=== PATIENT | female | born 1945 | race Caucasian/White ===

== ENCOUNTER 2022-07-05 11:00 | Emergency (ER) | payer OTHER ==
[~2022-07-05] VITALS: Ht 160 cm; Wt 65.8 kg
[2022-07-05 11:11] VITALS: BP_SYST 191
--- NOTE | 2022-07-05 11:11 | NUR ---
Patient to ER bed 03 to gown for evaluation. Side rails up. Report given to Rosemarie SIN.
--- NOTE | 2022-07-05 11:21 | NUR ---
PT BIB DAUGHTER FROM HOME C/O LT FLANK PAIN 06/15. PT DENIES N/V/D. PT IS AFIBRILE. PT STATES BED SORE ON COCCYX. PT DENIES PAIN IN DURING URINATION. PT AAO X4. PT STATES HX OF HTN AND DM. PT RESTING IN BED WITH THE RAILS UP VSS
--- NOTE | 2022-07-05 11:27 | NUR ---
ER at bedside examining patient.
[2022-07-05] MEDS ORDERED: NACL 0.9% 1,000 ML IV ONE (11:30)
[2022-07-05] MEDS ORDERED: ENALAPRILAT DIHYDRATE 1.25 MG/ML VIAL IVP ONE (11:30)
--- NOTE | 2022-07-05 12:00 | NUR ---
1L NS BOLUS NOT GIVEN DUE TO BLOOD PRESSURE 208/[address] STOREY UNTIL FURTHER NOTICE
[2022-07-05 12:20] LABS: BASOPHILS # (AUTO) 0.1 K/uL (0.0-0.2); BASOPHILS % (AUTO) 1.1 % (0.0-2.0); EOSINOPHILS # (AUTO) 0.1 K/uL (0.0-0.4); EOSINOPHILS % (AUTO) 1.4 % (0.0-4.0); HEMATOCRIT 47.2 % (36-48); HEMOGLOBIN 15.8 g/dL (12.0-16.0); LYMPHOCYTES # (AUTO) 1.2 K/uL (1.0-5.5); LYMPHOCYTES % (AUTO) 18.8 % (20.5-51.5); MEAN CORPUSCULAR HEMOGLOBIN 30 pg (27-31); MEAN CORPUSCULAR HGB CONC 33 % (32-36); MEAN CORPUSCULAR VOLUME 91 fL (79.0-98.0); MONOCYTES # (AUTO) 0.6 K/uL (0.0-1.0); NEUTROPHILS # (AUTO) 4.3 K/uL (1.8-7.7); NEUTROPHILS % (AUTO) 68.7 % (40.0-70.0); PLATELET COUNT (AUTO) 225 K/uL (130-430); RED BLOOD CELL COUNT(AUTO) 5.21 MIL/uL (4.2-6.2); WHITE BLOOD COUNT (AUTO) 6.2 K/uL (4.8-10.8)
[2022-07-05 12:30] LABS: ANION GAP 5 (5-15); CALCIUM 9.8 mg/dL (8.4-11.0); CHLORIDE 100 mmol/L (98-107); CREATININE 0.96 mg/dL (0.55-1.30); GLUCOSE 236 mg/dL (70-99); UREA NITROGEN, BLOOD 23 mg/dL (8-21)
[2022-07-05 12:35] LABS: ALANINE AMINOTRANSFERASE 19 U/L (12-78); ALBUMIN 3.7 g/dL (3.4-4.8); ASPARTATE AMINOTRANSFERASE 21 U/L (10-37); TOTAL BILIRUBIN 0.5 mg/dL (0.0-1.0)
[2022-07-05] MEDS ORDERED: hydrALAZINE HCL 20 MG/ML VIAL IVP ONE (12:45)
[2022-07-05 12:49] LABS: BILIRUBIN,URINE NEGATIVE (NEGATIVE); BLOOD, URINE 3+ (NEGATIVE); CLARITY/URINE SLIGHTLY HAZY (CLEAR); COLOR,URINE YELLOW (YELLOW); GLUCOSE,URINE NEGATIVE (NEGATIVE); KETONES,URINE NEGATIVE (NEGATIVE); LEUKOCYTE ESTERASE ,URINE 2+ (NEGATIVE); NITRITE, URINE NEGATIVE (NEGATIVE); PROTEIN URINE 2+ (NEGATIVE)
[2022-07-05 12:58] LABS: BACTERIA,URINE FEW /HPF (None Seen); RBC,URINE 20-50 /HPF (0-3)
[2022-07-05] MEDS ORDERED: cefTRIAXone 1 GM IVPB PREMIX 50 ML IV ONE (13:30)
[2022-07-05] MEDS ORDERED: CIPR500T5 PO (14:33)
[2022-07-05] MEDS ORDERED: NAPR-690 PO (14:34)
[2022-07-05] MEDS ORDERED: BACITRACIN 1 GM OINT TP ONE (15:15)
--- NOTE | 2022-07-05 15:21 | NUR ---
NOTICED STAGE 2 PRESSURE ULCER ON COCCYX. APPLIED BACITRACIN AND OPTIFOAM PAD TO COCCYX. PT TOLERATED WELL. BED RAILS UP RESING COMFORTABLY AT THIS TIME
--- NOTE | 2022-07-05 15:41 | NUR ---
Patient given written and verbal discharge instructions and verbalizes understanding. ER MD discussed with patient the results and treatment provided. Patient in stable condition. ID arm band removed. IV catheter removed intact and dressing applied, no active bleeding. Rx of CIPRO AND NAPROXONE given. Patient educated on KIDNEY STONES AND POLYNEPHRITIS and to follow up with PMD. Pain Scale . Opportunity for questions provided and answered. Medication side effect fact sheet provided.
[2022-07-05 15:43] VITALS: BP_SYST 134
== END 2022-07-05 15:41 | disposition home or self-care (01) ==
LOC: SED 11:00
DX: N20.0 Calculus of kidney (principal); N39.0 Urinary tract infection, site not specified; M54.50 Low back pain, unspecified; E78.5 Hyperlipidemia, unspecified; I10 Essential (primary) hypertension; Z79.899 Other long term (current) drug therapy
CPT/HCPCS: 99284; 74176; 96365; 96375; 96361; 80053; 81000; 85025; 87040; 87086; 36415; 76376; J0696; J0360; J7030